=== PATIENT | male | born 1960 | race Caucasian/White ===

== ENCOUNTER → 2020-10-28 | Outpatient (CLI) | payer OTHER | LOC: M.ULTRA 10:22 | PROVIDERS: ATTEND Specialist | DX: S76.112A Strain of left quadriceps muscle, fascia and tendon, initial encounter (principal); G62.9 Polyneuropathy, unspecified; X58.XXXA Exposure to other specified factors, initial encounter; Y93.89 Activity, other specified; Y92.89 Other specified places as the place of occurrence of the external cause; Y99.8 Other external cause status ==